=== PATIENT | female | born 1980 | race African-American/Black ===

== ENCOUNTER → 2021-05-14 | Outpatient (CLI) | payer BC ==
[~2021-05-14] MED LIST: IOHEXOL 300 MG/ML 50 ML VIAL. IJ ONE
--- NOTE | 2021-05-14 15:01 | RAD ---
EXAM: Hysterosalpingogram. HISTORY: Infertility. TECHNIQUE: The risks of the procedure were discussed with the patient and written and verbal consent was obtained. A timeout was performed. The patient was placed in a supine position on the fluoroscopy table and a speculum was advanced into the vagina. The cervix is identified and cleansed with Betadi ne. A balloon tipped catheter was advanced into the uterus and the balloon was inflated. Water-solubl e contrast was then hand injected into the uterus and fluoroscopic images were obtained in multiple o bliquities. 7 fluoroscopic images were obtained for a total fluoroscopy time of 0.8 minutes. COMPARISON: None. FINDINGS: There is contrast opacification of the uterus and bilateral fallopian tubes. The superior u terine endometrial cavity demonstrates an irregular somewhat lobulated configuration. There are also filling defects within the bilateral cornua which are likely nonocclusive given the presence of contr ast within the fallopian tubes. There is free spillage of contrast from the left fallopian tube into the peritoneal cavity. There is no convincing spillage of contrast from the right fallopian tube into the peritoneal cavity. IMPRESSION: 1. Patent left fallopian tube demonstrating free spillage of contrast into the peritoneal cavity. 2. Contrast opacification of the right fallopian tube, without spillage of contrast into the peritone al cavity. 3. Irregular configuration of the superior endometrial cavity. The differential includes changes due to synechiae as well as fibroids. The imaging appearance does not favor polyps. There are also nonocc lusive filling defects within the bilateral cornua. Hysteroscopy may be useful for characterization. There is no pelvic sonogram available for correlation at the time of dictation. Electronically signed by: Catarina Almeida MD (05/14/2021 2:58 PM) [id number]
== END ==
LOC: RAD 13:21
PROVIDERS: ATTEND Obstetrics & Gynecology
DX: E28.2 Polycystic ovarian syndrome (principal); N97.8 Female infertility of other origin; Z87.42 Personal history of other diseases of the female genital tract
CPT/HCPCS: 58340; 74740; Q9967